=== PATIENT | male | born 1955 | race Caucasian/White ===

== ENCOUNTER 2021-04-05 14:04 | Inpatient (IN) ==
[2021-04-05 14:45] LABS: Basophils # (auto) 0.03 K/uL (0-0.2); Basophils % (auto) 0.2 %; Eosinophils # (auto) 0.23 K/uL (0-0.5); Eosinophils % (auto) 1.6 %; Hematocrit (blood only) 48.1 % (42-52); Hemoglobin 16.7 g/dL (14.0-18.0); Immature Granulocytes # (auto) 0.08 K/uL (0.00-0.02); Immature Granulocytes % (auto) 0.6 %; Lymphocytes # (auto) 3.87 K/uL (1.2-3.4); Lymphocytes % (auto) 27.3 %; Mean Corpuscular Hemoglobin 27.3 pg (25-34); Mean Corpuscular Hgb Conc 34.7 g/dL (32-36); Mean Corpuscular Volume 78.6 fL (80-100); Mean Platelet Volume 9.6 fL (7.4-10.4); Monocytes % (auto) 10.6 %; Neutrophils # (auto) 8.49 K/uL (1.4-6.5); Neutrophils % (auto) 59.7 %; Platelet Count 278 K/uL (130-400); RDW Coefficient of Variation 14.3 % (11.5-14.5); RDW Standard Deviation 40.7 fL (36.4-46.3); Red Blood Count 6.12 M/uL (4.7-6.1)
[2021-04-05] MEDS ORDERED: SODIUM CHLORIDE 0.9% 1000ML 1,000 ML IV SCH (14:45)
--- NOTE | 2021-04-05 14:54 | Emergency Department Note ---
History of Present Illness General Chief complaint: Vertigo Stated complaint: DIZZY Source: patient Mode of arrival: ambulatory Limitations: no limitations History of Present Illness Provider complaint: dizziness, palpitations Onset (ago): hour(s) This is a 65-year-old male who presents due to abrupt onset of dizziness, sweating, and palpitations. Patient states he was at home seated, resting when symptoms began. States he has had a prior similar episode last year of unknown etiology. Upon arrival here nursing staff states his heart rate was in the 200s and he was immediately placed in a resuscitation room. At the time of my arrival, patient's heart rate had begun to resolve on its own, was still tachycardic although not as fast. Staff had begun placing an IV. Heart rate was in the 140s, but quickly came down even further to the 1 teens. Patient denies any further dizziness at this time, states he does still feel sweaty. States when symptoms began he did feel a sense of racing, does not feel any racing or other palpitations at this time. Denies any shortness of breath. Patient denies any recent change in any medications. He is getting ready to have back surgery by Dr. Tobar the beginning of April. Patient does take medication for diabetes and high cholesterol. Patient is not anticoagulated. Patient states he has been working from home during the pandemic and because of the pain associated with his back issues. He states when this happened last year he underwent labs and imaging, and echo of his heart as well as a wearable heart monitor for several days and did follow-up with cardiology, Dr. Coello. Patient did have coronavirus last year. Pt initially tachycardic and hypotensive on arrival. Pt seen during a time of high acuity and national emergency pandemic while wearing PPE. Home Medications Medication Instructions Recorded Confirmed Type multivitamin 1 tab PO QAM 01/10/20 04/05/21 History acetaminophen 1,000 mg PO Q8H PRN 03/25/21 04/05/21 History albuterol sulfate 2 puff INHALATION Q6H PRN 03/25/21 04/05/21 History atorvastatin 20 mg PO HS 03/25/21 04/05/21 History cyclobenzaprine 10 mg PO BID PRN 03/25/21 04/05/21 History fluticasone propionate 2 spray INTRANASAL DAILY PRN 03/25/21 04/05/21 History metformin 1,000 mg PO QPM 03/25/21 04/05/21 History oxycodone 5 mg PO TID PRN 03/25/21 04/05/21 History apixaban [Eliquis] 5 mg PO BID #74 tab 04/07/21 Rx Allergies Allergy/AdvReac Type Severity Reaction Status Date / Time No Known Allergies Allergy Verified 03/25/21 10:10 Past Med/Surg History Medical History (Updated 04/08/21 @ 00:05 by Ricky Alvarez) Asthma Stable, follows [facility]) pulmonary annually Cancer BCC (facial/back removal) Diverticular disease Diverticulitis s/p bowel resection (2010) History of COVID-19 Dx 01/10/20 (Curetis) > symptoms at time of cough, dyspnea, fever, loss of smell > resolved History of palpitations Evaluated by cardiology 06/2020 for palpitations/rapid heart rate > no concerning findings on followup echo/holter per cardio, advised to f/u PRN Hyperlipidemia Pulmonary embolism Tachycardia Surgical History History of bowel resection Diverticulitis s/p bowel resection (2010) History of colonoscopy x3 History of herniorrhaphy x2 (at , 1995) History of tooth extraction WTE Family History (Updated 04/05/21 @ 18:07 by Kendra Simeon PA-C) Father Prostate cancer Denies family history of Pulmonary embolism Social History Smoking Status: Never smoker Second Hand Exposure: Yes (FATHER SMOKED); Hx Alcohol Use: Yes Alcohol type: beer, wine and hard liquor Hx Substance Use: No Preferred Language: Cambodian Communication Ability: Effective Research Physiologist Required: No Beliefs That Will Affect Care: None Current Living Situation: Spouse current occupational status: employed current occupation: [employer] Feels Safe at Home: Yes Assistive Devices: None Review of Systems See HPI for pertinent positives & negatives. and A total of 10 systems reviewed and were otherwise negative Physical Exam Vital Signs Vital Signs - 24 hr 04/05/21 14:25 04/05/21 14:30 04/05/21 14:34 Temperature 36.5 C Temperature Source Temporal Artery Scan Pulse Rate 205 H 108 H 107 H Pulse Rate from SpO2 Sensor 108 H 107 H Pulse Rhythm Regular Pulse Strength Normal Respiratory Rate 20 29 H 25 H Respiratory Effort / Characteristics Non-Labored Spontaneous Respiratory Depth Normal Respiratory Pattern Regular Blood Pressure 57/49 L 137/99 Blood Pressure Mean 51 111 Blood Pressure Position Sitting Pulse Oximetry 97 97 97 Oxygen Delivery Method Room Air Sepsis Recent Fever Within 48 Hours No Sepsis New/Unexplained Change in Mental Status N/A Sepsis Action Taken by Nursing No Action Required 04/05/21 14:40 04/05/21 14:50 04/05/21 15:00 Temperature Temperature Source Pulse Rate 102 H 104 H 102 H Pulse Rate from SpO2 Sensor 103 H 102 H 102 H Pulse Rhythm Pulse Strength Respiratory Rate 16 22 Respiratory Effort / Characteristics Respiratory Depth Respiratory Pattern Blood Pressure 110/81 101/82 107/74 Blood Pressure Mean 90 88 85 Blood Pressure Position Pulse Oximetry 97 96 96 Oxygen Delivery Method Sepsis Recent Fever Within 48 Hours Sepsis New/Unexplained Change in Mental Status Sepsis Action Taken by Nursing 04/05/21 15:10 04/05/21 16:11 04/05/21 16:30 Temperature Temperature Source Pulse Rate 104 H 88 Pulse Rate from SpO2 Sensor 104 H 90 89 Pulse Rhythm Pulse Strength Respiratory Rate 19 20 Respiratory Effort / Characteristics Respiratory Depth Respiratory Pattern Blood Pressure 110/84 Blood Pressure Mean 92 Blood Pressure Position Pulse Oximetry 95 98 94 Oxygen Delivery Method Sepsis Recent Fever Within 48 Hours Sepsis New/Unexplained Change in Mental Status Sepsis Action Taken by Nursing 04/05/21 16:44 Temperature Temperature Source Pulse Rate 86 Pulse Rate from SpO2 Sensor 86 Pulse Rhythm Pulse Strength Respiratory Rate 20 Respiratory Effort / Characteristics Respiratory Depth Respiratory Pattern Blood Pressure 116/77 Blood Pressure Mean 90 Blood Pressure Position Pulse Oximetry 97 Oxygen Delivery Method Sepsis Recent Fever Within 48 Hours Sepsis New/Unexplained Change in Mental Status Sepsis Action Taken by Nursing GENERAL: alert, well appearing, well nourished, no distress, non-toxic EYE EXAM: normal conjunctiva, PERRL and EOM's grossly intact OROPHARYNX: no exudate, no erythema, lips, buccal mucosa, and tongue normal and mucous membranes are moist NECK: supple, no nuchal rigidity, no adenopathy, non-tender LUNGS: Clear to auscultation. Normal chest wall mechanics, no w/r/r HEART: no murmurs, S1 normal and S2 normal ABDOMEN: abdomen soft, non-tender, normo-active bowel sounds, no masses, no r ebound or guarding. BACK: Back is symmetrical on inspection and there is no deformity, no midline t enderness, no CVA tenderness. SKIN: no rashes and no bruising UPPER EXTREMITIES: upper extremities are grossly normal. FROM, nml pulses b/l. LOWER EXTREMITIES: No pitting edema. FROM, nml pulses b/l. NEURO EXAM: Normal sensorium, cranial nerves II-XII grossly intact, normal speech, no gross weakness of arms, no gross weakness of legs. Gross sensation intact. Course Course 1542: Updated patient on results and plan for additional CT imaging. 1640: Updated patient on CT results and need for additional inpatient monitoring and treatment. Administered Medications Discontinued Medications Acetaminophen (Acetaminophen 325 Mg Tab) 650 mg PO Q4H PRN PRN Reason: Pain or Fever Stop: 05/05/21 20:45 Last Admin: 04/07/21 08:07 Dose: 650 mg Documented by: [id number] Admin: 04/06/21 17:32 Dose: 650 mg Documented by: [id number] Apixaban (Apixaban 5 Mg Tablet) 10 mg PO BID JOSE MANUEL Stop: 04/13/21 21:01 Last Admin: 04/07/21 13:20 Dose: 10 mg Documented by: [id number] Atorvastatin Calcium (Atorvastatin 20 Mg Tab) 20 mg PO HS JOSE MANUEL Stop: 05/05/21 20:59 Last Admin: 04/06/21 20:03 Dose: 20 mg Documented by: [id number] Admin: 04/05/21 21:38 Dose: 20 mg Documented by: [id number] Heparin Sodium (Porcine) (Heparin Sod (Porcine) 1000 Unit/Ml) 1 units IV NOW ONE Stop: 04/05/21 17:14 Last Admin: 04/05/21 17:29 Dose: 7,000 units Documented by: [id number] Cosigned by: [id number] Heparin Sodium/Dextrose (Heparin Iv Adult Wt-Based Standard With Bolus Protocol) 1 ea IV NOW STA; Protocol Stop: 04/05/21 16:59 Last Admin: 04/05/21 17:30 Dose: 1 ea Documented by: [id number] Sodium Chloride (Nss 1000ml) 1,000 mls @ 125 mls/hr IV .Q8H JOSE MANUEL Stop: 05/05/21 14:44 Last Infusion: 04/05/21 17:10 Dose: 0 mls/hr Documented by: [id number] Admin: 04/05/21 14:45 Dose: 125 mls/hr Documented by: [id number] Magnesium Sulfate/Dextrose (Magnesium Sulfate / D5w) 1 gm in 100 mls @ 100 mls/hr IV NOW STA Stop: 04/05/21 16:19 Last Infusion: 04/05/21 17:31 Dose: 0 mls/hr Documented by: [id number] Admin: 04/05/21 17:00 Dose: 100 mls/hr Documented by: [id number] Heparin Sodium/Dextrose (Heparin Sodium/Dextrose) 25,000 units in 500 mls @ 28 mls/hr IV .[id number] JOSE MANUEL; Protocol Stop: 05/05/21 17:12 Last Titration: 04/07/21 13:21 Dose: 0 units/hr, 0 mls/hr Documented by: [id number] Cosigned by: [id number] Admin: 04/07/21 03:35 Dose: 1,400 units/hr, 28 mls/hr Documented by: [id number] Cosigned by: [id number] Titration: 04/07/21 03:35 Dose: 1,400 units/hr, 28 mls/hr Documented by: [id number] Cosigned by: [id number] Titration: 04/06/21 19:01 Dose: 1,400 units/hr, 28 mls/hr Documented by: [id number] Cosigned by: [id number] Admin: 04/06/21 11:38 Dose: 1,400 units/hr, 28 mls/hr Documented by: [id number] Cosigned by: [id number] Titration: 04/06/21 10:52 Dose: 1,400 units/hr, 28 mls/hr Documented by: [id number] Cosigned by: [id number] Titration: 04/06/21 07:06 Dose: 1,400 units/hr, 28 mls/hr Documented by: [id number] Cosigned by: [id number] Titration: 04/06/21 00:16 Dose: 1,400 units/hr, 28 mls/hr Documented by: [id number] Cosigned by: [id number] Admin: 04/05/21 17:29 Dose: 1,500 units/hr, 30 mls/hr Documented by: [id number] Cosigned by: [id number] Insulin Aspart (Insulin Aspart 100 Units/Ml 3 Ml Pen) 0 units SC ACHS JOSE MANUEL Stop: 05/05/21 20:59 Last Admin: 04/07/21 12:03 Dose: 2 units Documented by: [id number] Cosigned by: [id number] Admin: 04/07/21 08:09 Dose: 3 units Documented by: [id number] Cosigned by: [id number] Admin: 04/06/21 20:06 Dose: Not Given Documented by: [id number] Admin: 04/06/21 16:53 Dose: 3 units Documented by: [id number] Cosigned by: [id number] Admin: 04/06/21 12:03 Dose: 3 units Documented by: [id number] Cosigned by: [id number] Admin: 04/06/21 08:10 Dose: 2 units Documented by: [id number] Cosigned by: [id number] Admin: 04/05/21 21:41 Dose: 1 units Documented by: [id number] Cosigned by: [id number] Insulin Glargine (Insulin Glargine Solostar 100 Units/Ml 3 Ml Pen) 0 - 10 units SC BID [facility] Stop: 05/05/21 20:59 Last Admin: 04/07/21 08:10 Dose: 5 units Documented by: [id number] Cosigned by: [id number] Admin: 04/06/21 20:07 Dose: Not Given Documented by: [id number] Admin: 04/06/21 08:10 Dose: 5 units Documented by: [id number] Cosigned by: [id number] Admin: 04/05/21 21:40 Dose: 5 units Documented by: [id number] Cosigned by: [id number] Ioversol (Optiray 320 125ml) 119 ml IV ONCE ONE Stop: 04/05/21 15:51 Last Admin: 04/05/21 15:50 Dose: 1 ml Documented by: [id number] Miscellaneous (Stop Order - Heparin Drip) 1 ea N/A ONE ONE Stop: 04/07/21 12:46 Last Admin: 04/07/21 13:20 Dose: 1 ea Documented by: [id number] Multivitamins (Multivitamin Tab) 1 tab PO QAM [facility] Stop: 05/06/21 08:59 Last Admin: 04/07/21 08:08 Dose: 1 tab Documented by: [id number] Admin: 04/06/21 07:16 Dose: 1 tab Documented by: [id number] Critical Care Time Critical Care Time: Yes Total Critical Care Time: 42 Critical care of 42 min performed to assess and manage high likelihood of life- threatening tachycardia, involving labs and imaging performed with assessment to evaluate tachycardia diagnosis with frequent reassessment. This time includes bedside time, treatment discussions with patient/family/consultants, documen tation time and excludes procedure time. Medical Decision Making Differential Diagnosis Differential diagnosis includes etiologies such as premature contractions, electrolyte abnormality, cardiac dysrhythmia, thyroid dysfunction, pulmonary embolism, infection, gastrointestinal, as well as others were entertained. Medical Records Attestation: I reviewed the patient's medical records. Home Medications Current Medication List: was personally reviewed by me Laboratory Data Attestation: I reviewed the patient's lab results. Result diagrams: 04/06/21 06:35 04/06/21 06:35 Lab Results 04/05/21 04/05/21 04/05/21 Range/Units 14:35 14:35 14:35 WBC 14.20 H (4.8-10.8) K/uL RBC 6.12 H (4.7-6.1) M/uL Hgb 16.7 (14.0-18.0) g/dL Hct 48.1 (42-52) % MCV 78.6 L (80-100) fL MCH 27.3 (25-34) pg MCHC 34.7 (32-36) g/dL RDW Std Deviation 40.7 (36.4-46.3) fL RDW Coeff of Rosa 14.3 (11.5-14.5) % Plt Count 278 (130-400) K/uL MPV 9.6 (7.4-10.4) fL Immature Gran % (Auto) 0.6 % Neut % (Auto) 59.7 % Lymph % (Auto) 27.3 % Cassia % (Auto) 10.6 % Eos % (Auto) 1.6 % Baso % (Auto) 0.2 % Neut # (Auto) 8.49 H (1.4-6.5) K/uL Lymph # (Auto) 3.87 H (1.2-3.4) K/uL Cassia # (Auto) 1.50 H (0.11-0.59) K/uL Eos # (Auto) 0.23 (0-0.5) K/uL Baso # (Auto) 0.03 (0-0.2) K/uL Immature Gran # (Auto) 0.08 H (0.00-0.02) K/uL PT (9.0-12.0) Seconds INR (0.9-1.1) D-Dimer 1170 H* (0-500) ug/L FEU Sodium 135 L (136-145) mmol/L Potassium 4.0 (3.5-5.1) mmol/L Chloride 99 (98-107) mmol/L Carbon Dioxide 27 (21-32) mmol/L Anion Gap 9.0 (3-11) BUN 18 (7-18) mg/dl Creatinine 0.84 (0.6-1.4) mg/dl Est Cr Clr Drug Dosing 105.0 ml/min Est GFR ( Amer) 107.2 ml/min Est GFR (Non-Af Amer) 92.5 ml/min BUN/Creatinine Ratio 21.7 H (10-20) Glucose 127 H (70-99) mg/dl Calcium 9.6 (8.5-10.1) mg/dl Magnesium 1.7 L (1.8-2.4) mg/dl Total Bilirubin 0.8 (0.2-1) mg/dl AST 41 H (15-37) U/L ALT 65 (12-78) U/L Alkaline Phosphatase 70 (45-117) U/L Troponin I < 0.015 (0-0.045) ng/ml NT-Pro-B Natriuret Pep 58 (0-900) pg/ml Total Protein 7.8 (6.4-8.2) gm/dl Albumin 4.0 (3.4-5.0) gm/dl Globulin 3.8 (2.5-4.0) gm/dl Albumin/Globulin Ratio 1.1 (0.9-2) TSH 2.980 (0.300-4.500) uIu/ml Lyme Disease IgG Ab (Negative) Lyme Disease IgM Ab (Negative) 04/05/21 04/05/21 Range/Units 14:35 14:35 WBC (4.8-10.8) K/uL RBC (4.7-6.1) M/uL Hgb (14.0-18.0) g/dL Hct (42-52) % MCV (80-100) fL MCH (25-34) pg MCHC (32-36) g/dL RDW Std Deviation (36.4-46.3) fL RDW Coeff of Rosa (11.5-14.5) % Plt Count (130-400) K/uL MPV (7.4-10.4) fL Immature Gran % (Auto) % Neut % (Auto) % Lymph % (Auto) % Cassia % (Auto) % Eos % (Auto) % Baso % (Auto) % Neut # (Auto) (1.4-6.5) K/uL Lymph # (Auto) (1.2-3.4) K/uL Cassia # (Auto) (0.11-0.59) K/uL Eos # (Auto) (0-0.5) K/uL Baso # (Auto) (0-0.2) K/uL Immature Gran # (Auto) (0.00-0.02) K/uL PT 10.6 (9.0-12.0) Seconds INR 1.0 (0.9-1.1) D-Dimer (0-500) ug/L FEU Sodium (136-145) mmol/L Potassium (3.5-5.1) mmol/L Chloride (98-107) mmol/L Carbon Dioxide (21-32) mmol/L Anion Gap (3-11) BUN (7-18) mg/dl Creatinine (0.6-1.4) mg/dl Est Cr Clr Drug Dosing ml/min Est GFR ( Amer) ml/min Est GFR (Non-Af Amer) ml/min BUN/Creatinine Ratio (10-20) Glucose (70-99) mg/dl Calcium (8.5-10.1) mg/dl Magnesium (1.8-2.4) mg/dl Total Bilirubin (0.2-1) mg/dl AST (15-37) U/L ALT (12-78) U/L Alkaline Phosphatase (45-117) U/L Troponin I (0-0.045) ng/ml NT-Pro-B Natriuret Pep (0-900) pg/ml Total Protein (6.4-8.2) gm/dl Albumin (3.4-5.0) gm/dl Globulin (2.5-4.0) gm/dl Albumin/Globulin Ratio (0.9-2) TSH (0.300-4.500) uIu/ml Lyme Disease IgG Ab Negative (Negative) Lyme Disease IgM Ab Negative (Negative) Imaging Data Radiologist's Impression: Chest X-Ray 04/05/21 14:39 XR chest 1V portable CLINICAL HISTORY: tachycardia COMPARISON STUDY: May 06, 2020 FINDINGS: No pneumothorax. No pleural effusion. No large infiltrates or consolidative lesions are seen. Minimal atelectasis/scarring is seen at the left base. Cardiomediastinal silhouette is within normal limits in size. No significant pulmonary vascular congestion.. Osseous structures: unremarkable IMPRESSION: 1. Minimal atelectasis/scarring at the left base. ACT 112: Negative or not required by law. The above report was generated using voice recognition software. It may contain grammatical, syntax or spelling errors. Electronically signed by: Indira Barker DO 04/05/2021 3:00 PM Chest CTA 04/05/21 15:40 CT ANGIOGRAM OF THE CHEST CLINICAL HISTORY: PE COMPARISON STUDY: May 06, 2020 TECHNIQUE: Following the IV administration of 119 mL of Optiray, CT angiogram of the thorax was performed from the thoracic inlet to the lung bases utilizing the pulmonary embolus protocol. Images are reviewed in the axial, sagittal, and coronal planes. IV contrast was administered without complication. MIP imaging was performed. A dose lowering technique was utilized adhering to the evaristo kassidyples of [place]. CT DOSE: 754.66 mGy.cm FINDINGS: There is adequate characterization of the main pulmonary artery. Multiple filling defects are seen within branches of the pulmonary artery supply ing upper and lower lobes of bilateral lungs which is mostly nonocclusive however there is complete occlusion small branch of pulmonary artery supplying left upper lobe (4/176) Pulmonary artery is normal in caliber. No right heart strain seen. Cardiac silhouette is normal in size. No evidence of pericardial effusion. No significant coronary calcification seen however evaluation is limited due to motion artifact. Visualized portion of thyroid gland shows no evidence of focal lesions. Esophagus is normal. No pathologically enlarged axillary mediastinal or hilar lymph nodes were visualized. Tracheobronchial tree is patent. Focal peripheral triangular opacity is seen within left upper lobe and might represent pulmonary infarct. Minimal atelectasis is seen in bilateral bases. Limited evaluation of upper abdominal viscera shows no evidence of acute abnormalities. Osseous structures: Mild degenerative changes of the spine. IMPRESSION: 1. Multiple nonocclusive thrombi within branches of pulmonary artery. Acute occlusive thrombus within left upper lobe pulmonary artery branch with possible area of pulmonary infarction. No evidence of right heart strain or pulmonary artery dilatation seen. Results were reported to emergency Department at the t beata of this dictation. 2. No infiltrates or consolidative lesions. ACT 112: Positive. There are findings on this exam that require communication between the performing entity and the patient following Patient Test Result Information Act ([place] Act 112) guidelines. The above report was generated using voice recognition software. It may contain grammatical, syntax or spelling errors. Electronically signed by: Indira Barker DO 04/05/2021 4:29 PM ECG Data Attestation: I personally reviewed and interpreted this ECG as follows: Indication: + palpitations Rate (beats per minute): 108 Rhythm: + sinus tachycardia ECG Intervals/blocks: + Normal QRS and + Normal QT ECG [place]: + Normal ECG ST segments: + Normal ST segments MDM Narrative PESI score elevated risk This is a 65-year-old male presents emergency department for evaluation due to concern for dizziness, diaphoresis, and rapid heart rate. Initially in triage patient found to have a heart rate in the 200s and was hypotensive. Patient was already improving by the time he was placed in B1 and by the time I got to bedside his heart rate continued to improve when he was down to the 1 teens. No dysrhythmia noted on telemetry, however on review of EMR as patient has had a similar episode approximately a year ago patient did previously have an episode of SVT and initially suspected that is what may have caused this. Labs are drawn and sent, patient continued to be monitored on telemetry, chest x-ray performed which is reassuring. No recent illness, change in activity, or new medications. Due to patient's age and tachycardia D-dimer had been added which was elevated. Patient sent for CT imaging which revealed multiple bilateral PEs. Patient with no prior history although has recently been more sedentary due to ongoing back pain and upcoming back surgery for this. Likely this increased sedentary lifestyle put him at risk. Patient had no recent leg swelling or calf tenderness to suggest lower extremity DVT. Patient and updated on all results and plan. Patient started on heparin for anticoagulation in case discussed with hospitalist for additional management. Due to patient's age and history, patient is high risk. Patient had no recurrent episodes of significant tachycardia while in the emergency room and remained hemodynamically stable. An order was placed for continuous cardiac monitoring. The monitor shows a rate of _109_ with _sinus tachycardia_ rhythm. Impression & Plan Tachycardia, Pulmonary embolism Discharge Plan Visit Data Chief Complaint: Vertigo Stated Complaint: DIZZY ED Provider: Linda Walters Discharge Problem: Tachycardia, Pulmonary embolism Patient Disposition: Admitted As Inpatient Discharge Instructions Interventions: ED Discharge Assessment Last Done: 04/05/21 20:31
--- NOTE | 2021-04-05 15:01 | XRay Report ---
XR chest 1V portable CLINICAL HISTORY: tachycardia COMPARISON STUDY: May 06, 2020 FINDINGS: No pneumothorax. No pleural effusion. No large infiltrates or consolidative lesions are seen. Minimal atelectasis/scarring is seen at the l eft base. Cardiomediastinal silhouette is within normal limits in size. No significant pulmonary vascular congestion.. Osseous structures: unremarkable IMPRESSION: 1. Minimal atelectasis/scarring at the left base. ACT 112: Negative or not required by law. The above report was generated using voice recognition software. It may contain grammatical, syntax o r spelling errors. Electronically signed by: Indira Barker DO 04/05/2021 3:00 PM
[2021-04-05 15:16] LABS: Alanine Aminotransferase 65 U/L (12-78); Aspartate Aminotransferase 41 U/L (15-37); BUN Creatinine Ratio 21.7 (10-20); Blood Urea Nitrogen 18 mg/dl (7-18); Calcium 9.6 mg/dl (8.5-10.1); Carbon Dioxide 27 mmol/L (21-32); Chloride 99 mmol/L (98-107); Est GFR (African American) 107.2 ml/min; Est GFR (Non-African American) 92.5 ml/min; Glucose 127 mg/dl (70-99); Magnesium 1.7 mg/dl (1.8-2.4); Sodium 135 mmol/L (136-145)
[2021-04-05] MEDS ORDERED: MAGNESIUM SULFATE / D5W 1 GM/100 ML BAG IV STA (15:20)
[2021-04-05 15:27] LABS: Albumin Globulin Ratio 1.1 (0.9-2); Alkaline Phosphatase 70 U/L (45-117); Bilirubin,Total 0.8 mg/dl (0.2-1); Globulin 3.8 gm/dl (2.5-4.0); NT Pro B Type Natriuretic Pept 58 pg/ml (0-900); Total Protein 7.8 gm/dl (6.4-8.2); Troponin I < 0.015 ng/ml (0-0.045)
[2021-04-05 15:35] LABS: D Dimer 1170 ug/L FEU (0-500)
[2021-04-05] MEDS ORDERED: OPTIRAY 320 125ml IV ONE (15:50)
[2021-04-05 15:52] LABS: Lyme Ab IgG w/WB Rflx Negative (Negative)
[2021-04-05 15:53] LABS: Lyme Ab IgM w/WB Rflx Negative (Negative)
--- NOTE | 2021-04-05 16:31 | CT Scan Report ---
CT ANGIOGRAM OF THE CHEST CLINICAL HISTORY: PE COMPARISON STUDY: May 06, 2020 TECHNIQUE: Following the IV administration of 119 mL of Optiray, CT angiogram of the thorax was perfo rmed from the thoracic inlet to the lung bases utilizing the pulmonary embolus protocol. Images are r eviewed in the axial, sagittal, and coronal planes. IV contrast was administered without complication . MIP imaging was performed. A dose lowering technique was utilized adhering to the principles of [place] [employer]. CT DOSE: 754.66 mGy.cm FINDINGS: There is adequate characterization of the main pulmonary artery. Multiple filling defects are seen within branches of the pulmonary artery supplying upper and lower l obes of bilateral lungs which is mostly nonocclusive however there is complete occlusion small branch of pulmonary artery supplying left upper lobe (4/176) Pulmonary artery is normal in caliber. No right heart strain seen. Cardiac silhouette is normal in size. No evidence of pericardial effusion. No significant coronary ca lcification seen however evaluation is limited due to motion artifact. Visualized portion of thyroid gland shows no evidence of focal lesions. Esophagus is normal. No pathologically enlarged axillary mediastinal or hilar lymph nodes were visualized. Tracheobronchial tree is patent. Focal peripheral triangular opacity is seen within left upper lobe a nd might represent pulmonary infarct. Minimal atelectasis is seen in bilateral bases. Limited evaluation of upper abdominal viscera shows no evidence of acute abnormalities. Osseous structures: Mild degenerative changes of the spine. IMPRESSION: 1. Multiple nonocclusive thrombi within branches of pulmonary artery. Acute occlusive thrombus withi n left upper lobe pulmonary artery branch with possible area of pulmonary infarction. No evidence of right heart strain or pulmonary artery dilatation seen. Results were reported to emergency Department at the time of this dictation. 2. No infiltrates or consolidative lesions. ACT 112: Positive. There are findings on this exam that require communication between the performing entity and the patient following Patient Test Result Information Act [place] Act 112) guidelines. The above report was generated using voice recognition software. It may contain grammatical, syntax o r spelling errors. Electronically signed by: Indira Barker DO 04/05/2021 4:29 PM
[2021-04-05] MEDS ORDERED: Heparin IV Adult Wt-Based Standard WITH Bolus Protocol IV STA (16:58)
[2021-04-05] MEDS ORDERED: HEPARIN SOD (PORCINE) 1000 UNIT/ML IV ONE ×2 (17:13→18:00)
[2021-04-05 17:17] LABS: Prothrombin Time 10.6 Seconds (9.0-12.0)
[2021-04-05] MEDS: HEPARIN SODIUM/DEXTROSE 25,000 UNITS/500 ML BAG IV SCH (17:29)
--- NOTE | 2021-04-05 18:01 | History & Physical Report ---
Date of Service April 05, 2021 Assessment & Plan (1) Pulmonary embolism: (2) Tachycardia: This is a 65-year-old male who has significant past medical history of T2DM, HLD, history of Covid, asthma, DWAYNE on CPAP who presents to ED secondary to heart palpitations, tachycardia and lightheadedness prior to arrival. Symptoms started abruptly at approximately 12:15 PM. Chest CTA: Multiple nonocclusive thrombi within branches of pulmonary artery. Acute occlusive thrombus within left upper lobe pulmonary artery branch with possible area of pulmonary infarction. No evidence of right heart strain or pulmonary artery dilatation seen. No recent travel, hx of PE, FH of clotting d/o. He has been more sedentary 2/2 to low back/leg pain due to disc herniations. Hx of covid- but in 12/2019. Admit to PCU continue IV heparin - discussed with patient about warfarin/DOACS in future, was interested in DOACS if possible obtain echocardiogram eval heart function b/l venous doppler Dr. Fitzpatrick to discuss with Pulm tomorrow regarding possible pulmonary infarct will need to notify Dr. Tobar regarding findings and postpone upcoming surgery Palpitations/tachyarrhythmia Patient currently in sinus tach likely in setting of pulmonary embolism Prior to arrival to ED patient complained of significant heart palpitations and pulse ox recording heart rate of greater than 200 In triage it was also reported of tachycardia with heart rates greater than 200; however by the time patient got on monitor symptoms improved and were in the 120s-140s No arrhythmia was captured Continue to monitor on telemetry for any further events Leukocytosis Likely in setting of PE, reactive No signs or symptoms of infection Monitor (3) Diabetes mellitus, type 2: A1c 8.0 03/05/2021 Hold Metformin Lantus/NovoLog per protocol (4) Chronic back pain: Patient is suffering from a disc herniation and is scheduled to have a procedure with Dr. Tobar on April 18 Given newly diagnosed pulmonary embolism lower back procedure will need to be postponed Continue APAP, Flexeril, oxycodone He was taking ibuprofen at home, will discontinue this secondary to anticoagulation (5) DWAYNE (obstructive sleep apnea): CPAP at HS (6) DVT prophylaxis: IV Heparin Dispo: PCU PCP: Stefanie FULL CODE Patient was seen and examined in collaboration with Dr. Fitzpatrick, please see addendum History of Present Illness Chief Complaint: Heart palpitations, tachycardia and lightheadedness prior to arrival. Primary Care Provider: Padmini Watts, DO This is a 65-year-old male who has significant past medical history of T2DM, HLD, history of Covid, asthma, DWAYNE on CPAP who presents to ED secondary to heart palpitations, tachycardia and lightheadedness prior to arrival. Symptoms started abruptly at approximately 12:15 PM. He could feel his heart racing, palpitations, diaphoretic and lightheaded. had a pulse ox and checked his pulse and it was reading greater than 200. He tried to get up to walk to the sink but when he tried to walk he became lightheaded and opted to sit back down. His symptoms continued until he got into triage and slowly started to resolve. In triage Per ED provider heart rate was registering over 200. However, by the time patient was hooked up to monitor his heart rate was in the 140s and then into the 110s. Patient had a similar event back in May 2020 when he had similar symptoms and tachycardia. When he presented to ED his symptoms had resolved. He had followed up with [facility] cardiology Dr. Coello and underwent heart rhythm monitoring. No arrhythmias were captured and echocardiogram was unremarkable. He was cleared from a cardiology standpoint. Prior to today at 1215 he had been otherwise feeling well. He did elicit that for the past 3 to 4 days he had left chest wall pain that was worse with inspiration and occasionally made him feel short of breath. The pain came on when he woke up one morning and gradually resolved. His left-sided chest pain is resolved and is not currently present. He denies any recent fever, chills, sweats, syncope, shortness of breath, cough, hemoptysis, URI symptoms, nausea, vomiting, abdominal pain, change in bowel or urinary habits. His appetite has otherwise been well. He admits to approximately a 5 pound weight loss since being started on Metformin. He denies any prior past history of blood clots or family history of blood clots. He denies any recent travel. He admits to being more sedentary in the past year secondary to working from home as well as low back and leg pain. Patient has been suffering from herniated lumbar disks and is to undergo surgery with Dr. Tobar on April 18. He had his first preop appointment yesterday. In ED patient remained hemodynamically stable. He is saturating well on room air. Unfortunately chest CTA revealed multiple nonocclusive thrombi within branches of the pulmonary artery. An acute occlusive thrombus within the left upper lobe pulmonary artery branch with possible area of pulmonary infarction. No evidence of right heart strain. He was appropriately started on IV heparin with bolus and his magnesium was repleted. Allergies Allergy/AdvReac Type Severity Reaction Status Date / Time No Known Allergies Allergy Verified 04/16/21 18:50 Home Medications Medication Instructions Recorded Confirmed Type multivitamin 1 tab PO QAM 01/10/20 04/16/21 History acetaminophen 1,000 mg PO Q8H PRN 03/25/21 04/16/21 History albuterol sulfate 2 puff INHALATION Q6H PRN 03/25/21 04/16/21 History atorvastatin 20 mg PO HS 03/25/21 04/16/21 History cyclobenzaprine 10 mg PO BID PRN 03/25/21 04/16/21 History fluticasone propionate 2 spray INTRANASAL DAILY PRN 03/25/21 04/16/21 History metformin 1,000 mg PO QPM 03/25/21 04/16/21 History oxycodone 5 mg PO TID PRN 03/25/21 04/16/21 History apixaban [Eliquis] 5 mg PO BID #74 tab 04/07/21 04/16/21 Rx Past Med/Surg History Medical History (Updated 04/16/21 @ 20:35 by Sreekanth Jade MD) Asthma Stable, follows with [facility]) pulmonary annually Cancer BCC (facial/back removal) Diverticular disease Diverticulitis s/p bowel resection (2010) History of COVID-19 Dx 01/10/20 (HistoryFile) > symptoms at time of cough, dyspnea, fever, loss of smell > resolved History of palpitations Evaluated by cardiology 06/2020 for palpitations/rapid heart rate > no concerning findings on followup echo/holter per cardio, advised to f/u PRN Hyperlipidemia Pulmonary embolism Tachycardia Surgical History History of bowel resection Diverticulitis s/p bowel resection (2010) History of colonoscopy x3 History of herniorrhaphy x2 (at , 1995) History of tooth extraction WTE Family History (Updated 04/05/21 @ 18:07 by Kendra Simeon PA-C) Father Prostate cancer Denies family history of Pulmonary embolism Social History Smoking Status: Never smoker Second Hand Exposure: Yes (FATHER SMOKED); Hx Alcohol Use: Yes Alcohol type: beer, wine and hard liquor Hx Substance Use: No Preferred Language: Czech Communication Ability: Effective Brazer Electronic Required: No Beliefs That Will Affect Care: None Current Living Situation: Spouse current occupational status: employed current occupation: [employer] Feels Safe at Home: Yes Assistive Devices: None Review of Systems Review of Systems: All systems reviewed & are unremarkable except as noted in HPI & below Physical Exam Physical Exam: Constitutional: WD/WN, vitals as above, NAD, sitting up in bed, pleasant, conversing easily Head: Normocephalic, Atraumatic Eyes: PERRL, conjunctivae normal, anicteric sclerae ENMT: external ear and nose normal, oropharynx normal Neck: trachea midline, no thyromegaly normal visual inspection Respiratory: normal respiratory effort, lungs clear to auscultation, no wheeze, rales, rhonchi. Normal insp/exp effort, no accessory muscle use Cardiovascular: RRR, no murmur, no edema Vessels: no JVD or carotid bruit Chest: normal inspection of chest Abdomen: normal bowel sounds, soft, nontender, no hepatosplenomegaly Musculoskeletal: no cyanosis or clubbing, extremities motor strength 5/5 Skin: no rashes, warm and dry normal turgor Neurologic: PERRL, EOMI, accommodation nl, no face palsy, no dysarthria CN's II-XI intact bilaterally and moves all extremities Psychiatric: A+Ox3, euthymic affect Lymphatic: no cervical or axillary lymphadenopathy : deferred Results & Data Results & Data ([facility]) Vital Signs (Past 12 Hours) Vital Signs Temp Pulse Resp BP Pulse Ox 04/05/21 16:44 86 20 116/77 97 04/05/21 16:30 88 20 94 04/05/21 16:11 98 04/05/21 15:10 104 H 19 110/84 95 04/05/21 15:00 102 H 22 107/74 96 04/05/21 14:50 104 H 16 101/82 96 04/05/21 14:40 102 H 110/81 97 04/05/21 14:34 107 H 25 H 97 04/05/21 14:30 108 H 29 H 137/99 97 04/05/21 14:25 36.5 C 205 H 20 57/49 L 97 Diagnostic Findings Chest X-Ray 04/05/21 14:39 XR chest 1V portable CLINICAL HISTORY: tachycardia COMPARISON STUDY: May 06, 2020 FINDINGS: No pneumothorax. No pleural effusion. No large infiltrates or consolidative lesions are seen. Minimal atelectasis/scarring is seen at the left base. Cardiomediastinal silhouette is within normal limits in size. No significant pulmonary vascular congestion.. Osseous structures: unremarkable IMPRESSION: 1. Minimal atelectasis/scarring at the left base. ACT 112: Negative or not required by law. The above report was generated using voice recognition software. It may contain grammatical, syntax or spelling errors. Electronically signed by: Indira Barker DO 04/05/2021 3:00 PM Chest CTA 04/05/21 15:40 CT ANGIOGRAM OF THE CHEST CLINICAL HISTORY: PE COMPARISON STUDY: May 06, 2020 TECHNIQUE: Following the IV administration of 119 mL of Optiray, CT angiogram of the thorax was performed from the thoracic inlet to the lung bases utilizing the pulmonary embolus protocol. Images are reviewed in the axial, sagittal, and coronal planes. IV contrast was administered without complication. MIP imaging was performed. A dose lowering technique was utilized adhering to the principles of ALARA. CT DOSE: 754.66 mGy.cm FINDINGS: There is adequate characterization of the main pulmonary artery. Multiple filling defects are seen within branches of the pulmonary artery supplying upper and lower lobes of bilateral lungs which is mostly nonocclusive however there is complete occlusion small branch of pulmonary artery supplying left upper lobe (4/176) Pulmonary artery is normal in caliber. No right heart strain seen. Cardiac silhouette is normal in size. No evidence of pericardial effusion. No significant coronary calcification seen however evaluation is limited due to motion artifact. Visualized portion of thyroid gland shows no evidence of focal lesions. Esophagus is normal. No pathologically enlarged axillary mediastinal or hilar lymph nodes were visualized. Tracheobronchial tree is patent. Focal peripheral triangular opacity is seen within left upper lobe and might represent pulmonary infarct. Minimal atelectasis is seen in bilateral bases. Limited evaluation of upper abdominal viscera shows no evidence of acute abnormalities. Osseous structures: Mild degenerative changes of the spine. IMPRESSION: 1. Multiple nonocclusive thrombi within branches of pulmonary artery. Acute occlusive thrombus within left upper lobe pulmonary artery branch with possible area of pulmonary infarction. No evidence of right heart strain or pulmonary artery dilatation seen. Results were reported to emergency Department at the time of this dictation. 2. No infiltrates or consolidative lesions. ACT 112: Positive. There are findings on this exam that require communication between the performing entity and the patient following Patient Test Result Information Act ([place] Act 112) guidelines. The above report was generated using voice recognition software. It may contain grammatical, syntax or spelling errors. Electronically signed by: Indira Barker DO 04/05/2021 4:29 PM Medications Administered Medication List Sodium Chloride (Nss 1000ml) 1,000 mls @ 125 mls/hr IV .Q8H [facility] Stop: 05/05/21 14:44 Last Infusion: 04/05/21 17:10 Dose: 0 mls/hr Documented by: [id number] Admin: 04/05/21 14:45 Dose: 125 mls/hr Documented by: [id number] Heparin Sodium/Dextrose (Heparin Sodium/Dextrose) 25,000 units in 500 mls @ 30 mls/hr IV .[id number] [facility]; Protocol Stop: 05/05/21 17:12 Last Admin: 04/05/21 17:29 Dose: 1,500 units/hr, 30 mls/hr Documented by: [id number] Cosigned by: [id number] Discontinued Medications Heparin Sodium (Porcine) (Heparin Sod (Porcine) 1000 Unit/Ml) 1 units IV NOW ONE Stop: 04/05/21 17:14 Last Admin: 04/05/21 17:29 Dose: 7,000 units Documented by: [id number] Cosigned by: [id number] Heparin Sodium/Dextrose (Heparin Iv Adult Wt-Based Standard With Bolus Protocol) 1 ea IV NOW STA; Protocol Stop: 04/05/21 16:59 Last Admin: 04/05/21 17:30 Dose: 1 ea Documented by: [id number] Magnesium Sulfate/Dextrose (Magnesium Sulfate / D5w) 1 gm in 100 mls @ 100 mls/hr IV NOW STA Stop: 04/05/21 16:19 Last Infusion: 04/05/21 17:31 Dose: 0 mls/hr Documented by: [id number] Admin: 04/05/21 17:00 Dose: 100 mls/hr Documented by: [id number] Ioversol (Optiray 320 125ml) 119 ml IV ONCE ONE Stop: 04/05/21 15:51 Last Admin: 04/05/21 15:50 Dose: 1 ml Documented by: [id number] ECG Rate (beats per minute): 108 Rhythm: sinus tachycardia COVID-19 Results Results COVID-19 Adm Lab Results: RBC 5.44 M/uL (4.7-6.1) 04/06/21 WBC 7.88 K/uL (4.8-10.8) 04/06/21 Hgb 14.9 g/dL (14.0-18.0) 04/06/21 Hct 43.8 % (42-52) 04/06/21 Plt Count 246 K/uL (130-400) 04/06/21 Neutrophils (%) (Auto) 52.3 % 04/06/21 Lymphocytes (%) (Auto) 34.1 % 04/06/21 Monocytes # (Auto) 0.74 K/uL (0.11-0.59) H 04/06/21 Eosinophils # (Auto) 0.25 K/uL (0-0.5) 04/06/21 Immature Granulocyte % (Auto) 0.6 % 04/06/21 Neutrophils # (Auto) 4.12 K/uL (1.4-6.5) 04/06/21 Lymphocytes # (Auto) 2.69 K/uL (1.2-3.4) 04/06/21 Monocytes # (Auto) 0.74 K/uL (0.11-0.59) H 04/06/21 Eosinophils # (Auto) 0.25 K/uL (0-0.5) 04/06/21 Basophils # (Auto) 0.03 K/uL (0-0.2) 04/06/21 Immature Granulocyte # (Auto) 0.05 K/uL (0.00-0.02) H 04/06/21 Na 138 mmol/L (136-145) 04/06/21 K 4.2 mmol/L (3.5-5.1) 04/06/21 Cl 105 mmol/L (98-107) 04/06/21 CO2 26 mmol/L (21-32) 04/06/21 Anion Gap 7.0 (3-11) 04/06/21 BUN 14 mg/dl (7-18) 04/06/21 Creatinine 0.78 mg/dl (0.6-1.4) 04/06/21 BUN/Creatinine Ratio 17.5 (10-20) 04/06/21 Glucose Level 133 mg/dl (70-99) H 04/06/21 Ca 9.2 mg/dl (8.5-10.1) 04/06/21 Total Bilirubin 1.0 mg/dl (0.2-1) 04/06/21 AST/SGOT 32 U/L (15-37) 04/06/21 ALT/SGPT 52 U/L (12-78) 04/06/21 Alkaline Phosphatase 61 U/L (45-117) 04/06/21 Total Protein 6.8 gm/dl (6.4-8.2) 04/06/21 Albumin 3.3 gm/dl (3.4-5.0) L 04/06/21 Globulin 3.5 gm/dl (2.5-4.0) 04/06/21 Albumin/Globulin Ratio 1.0 (0.9-2) 04/06/21 Troponin I < 0.015 ng/ml (0-0.045) 04/05/21 MD-Udc-E-Type Natriuretic Pep 58 pg/ml (0-900) 04/05/21 D-Dimer 1170 ug/L FEU (0-500) H* 04/05/21 PTT 54.4 Seconds (21.0-31.0) H* 04/07/21 INR 1.0 (0.9-1.1) 04/05/21 COVID-19 PCR NEGATIVE (Negative) 04/05/21 Chest X-Ray 04/05/21 Code Status & VTE Plan Code Status Full Code VTE Prophylaxis Plan VTE Prophylaxis will be ordered: No Supervising Physician Co-Signing Physician Notes Pt was seen and examined. Agreed with Kendra ARNOLD exam, assessment and plan. 65-year-old male who has significant past medical history of T2DM, HLD, history of Covid, asthma, DWAYNE on CPAP who presents to ED secondary to heart palpitations, tachycardia and lightheadedness prior to arrival. Pt said that today around noon he felt his heart racing, palpitations, diaphoretic and lightheaded. checked his pulse and he was greater than 200. Pt said that he had similar symptoms back in May 2020 where he underwent heart rhythm monitoring. No arrhythmias were captured and echocardiogram was unremarkable. He was cleared from a cardiology standpoint. He said that about 4 days ago that he developed left sided chest wall discomfort that worst with inspiration and occasionally made him feel short of breath. in the ED, CTA chest done showed multiple nonocclusive thrombi within branches of pulmonary artery. Acute occlusive thrombus within left upper lobe pulmonary artery branch with possible area of pulmonary infarction. No evidence of right heart strain. He was starting on IV heparin with bolus, will continue. Will get an echo in am. Will discuss CTA chest finding with pulmonology. Will discuss Warfarin and the DOACs in detail. Will monitor closely in PCU. MD Nanette (1) Pulmonary embolism Pulmonary embolism type: multiple subsegmental (without acute cor pulmonale) Qualified Code(s): I26.94 - Multiple subsegmental pulmonary emboli without acute cor pulmonale
[2021-04-05] MEDS ORDERED: MAGNESIUM HYDROXIDE SUSP 30 ML UDC PO PRN (20:46)
[2021-04-05] MEDS ORDERED: ALUMINUM/MAGNESIUM SUSP 30 ML UDC PO PRN (20:46)
[2021-04-05] MEDS ORDERED: GLUCOSE 40% GEL 15 GM TUBE PO PRN (20:46)
[2021-04-05] MEDS ORDERED: Heparin IV Adult Wt-Based Standard *NO* Bolus Protocol ONE (20:46)
[2021-04-05] MEDS ORDERED: GLUCAGON FOR INJ 1 MG VIAL SQ PRN (20:46)
[2021-04-05] MEDS ORDERED: oxyCODONE HCL IR 5 MG TAB (IMMEDIATE RELEASE) PO PRN (20:46)
[2021-04-05] MEDS ORDERED: DEXTROSE 50% 50 ML SYRINGE IV PRN (20:46)
[2021-04-05] MEDS ORDERED: HEPARIN SODIUM/DEXTROSE 25,000 UNITS/500 ML BAG IV SCH (20:46)
[2021-04-05] MEDS ORDERED: CARBOHYDRATES FOR HYPOGLYCEMIA PO PRN (20:46)
[2021-04-05] MEDS ORDERED: ONDANSETRON INJ 2 MG/ML 2 ML VIAL IV PRN (20:46)
[2021-04-05] MEDS ORDERED: POLYETHYLENE (MIRALAX) 17 GM PACK PO PRN (20:46)
[2021-04-05] MEDS ORDERED: FLUTICASONE PROPIONATE NA SPR 16 GM BTL NAE PRN (20:46)
[2021-04-05] MEDS ORDERED: GLUCOSE 10 TABS/TUBE PO PRN (20:46)
[2021-04-05] MEDS ORDERED: ALBUTEROL HFA 8 GM INHALER INH PRN (20:46)
[2021-04-05] MEDS ORDERED: CYCLOBENZAPRINE HCL 10 MG TAB PO PRN (20:52)
[2021-04-05] MEDS: ATORVASTATIN 20 MG TAB PO SCH (21:38)
[2021-04-05] MEDS: INSULIN GLARGINE SOLOSTAR 100 UNITS/ML 3 ML PEN SC SCH (21:40)
[2021-04-05] MEDS: INSULIN ASPART 100 UNITS/ML 3 ML PEN SC SCH (21:41)
[2021-04-06 00:10] LABS: Partial Thromboplastin Ratio 2.6
[2021-04-06 06:51] LABS: Basophils # (auto) 0.03 K/uL (0-0.2); Basophils % (auto) 0.4 %; Eosinophils # (auto) 0.25 K/uL (0-0.5); Eosinophils % (auto) 3.2 %; Hematocrit (blood only) 43.8 % (42-52); Hemoglobin 14.9 g/dL (14.0-18.0); Immature Granulocytes # (auto) 0.05 K/uL (0.00-0.02); Immature Granulocytes % (auto) 0.6 %; Lymphocytes # (auto) 2.69 K/uL (1.2-3.4); Lymphocytes % (auto) 34.1 %; Mean Corpuscular Hemoglobin 27.4 pg (25-34); Mean Corpuscular Volume 80.5 fL (80-100); Mean Platelet Volume 9.6 fL (7.4-10.4); Monocytes # (auto) 0.74 K/uL (0.11-0.59); Monocytes % (auto) 9.4 %; Neutrophils # (auto) 4.12 K/uL (1.4-6.5); Neutrophils % (auto) 52.3 %; Platelet Count 246 K/uL (130-400); RDW Coefficient of Variation 14.5 % (11.5-14.5); RDW Standard Deviation 42.2 fL (36.4-46.3); Red Blood Count 5.44 M/uL (4.7-6.1); White Blood Count 7.88 K/uL (4.8-10.8)
[2021-04-06 07:10] LABS: Partial Thromboplastin Ratio 2.1
[2021-04-06] MEDS: MULTIVITAMIN TAB PO SCH (07:16)
[2021-04-06 07:22] LABS: Albumin Level 3.3 gm/dl (3.4-5.0); BUN Creatinine Ratio 17.5 (10-20); Calcium 9.2 mg/dl (8.5-10.1); Creatinine Clr Calc Pharmacy 112.7 ml/min; Est GFR (African American) 110.6 ml/min; Est GFR (Non-African American) 95.4 ml/min; Magnesium 2.2 mg/dl (1.8-2.4); Potassium 4.2 mmol/L (3.5-5.1)
[2021-04-06 07:24] LABS: Globulin 3.5 gm/dl (2.5-4.0); Total Protein 6.8 gm/dl (6.4-8.2)
--- NOTE | 2021-04-06 07:55 | Ultrasound Report ---
BILATERAL LOWER EXTREMITY VENOUS DOPPLER HISTORY: Pulmonary embolus. Assess for DVT. COMPARISON STUDY: None. FINDINGS: There are 2 popliteal veins with thrombus seen in one of 2 of the distal right popliteal ve ins. There is also thrombus within the right posterior tibial vein. The remaining right lower extremi ty deep venous structures are patent. No DVT within the left lower extremity. IMPRESSION: 1. Positive DVT within the right lower extremity. 2. No DVT within the left lower extremity. ACT 112: Negative or not required by law. Electronically signed by: Gabriel Sumner M.D. 04/06/2021 7:53 AM
[2021-04-06 08:02] LABS: Partial Thromboplastin Time 55.7 Seconds (21.0-31.0)
[2021-04-06] MEDS: INSULIN ASPART 100 UNITS/ML 3 ML PEN SC SCH ×4 (08:10→20:06)
[2021-04-06] MEDS: INSULIN GLARGINE SOLOSTAR 100 UNITS/ML 3 ML PEN SC SCH ×2 (08:10→20:07)
[2021-04-06] MEDS: HEPARIN SODIUM/DEXTROSE 25,000 UNITS/500 ML BAG IV SCH (11:38)
--- NOTE | 2021-04-06 13:03 | Electrocardiogram Report ---
Test Reason : Blood Pressure : / mmHG Vent. Rate : 108 BPM Atrial Rate : 108 BPM P-R Int : 144 ms QRS Dur : 088 ms QT Int : 334 ms P-R-T Axes : 056 001 028 degrees QTc Int : 447 ms Sinus tachycardia Otherwise normal ECG When compared with ECG of 14-MAY-2020 20:04, No significant change was found Confirmed by Jarred Alonso ([id number]) on 04/06/2021 1:03:01 PM Referred By: REFERRED SELF Confirmed By:Rehan Alonso
--- NOTE | 2021-04-06 13:07 | Electrocardiogram Report ---
Test Reason : Blood Pressure : / mmHG Vent. Rate : 072 BPM Atrial Rate : 072 BPM P-R Int : 164 ms QRS Dur : 092 ms QT Int : 408 ms P-R-T Axes : 031 -05 015 degrees QTc Int : 446 ms Normal sinus rhythm Normal ECG When compared with ECG of 05-APR-2021 14:32, (unconfirmed) Vent. rate has decreased BY 36 BPM Confirmed by Jarred Alonso ([id number]) on 04/06/2021 1:07:20 PM Referred By: REFERRED SELF Confirmed By:Rehan Alonso
[2021-04-06] MEDS: ACETAMINOPHEN 325 MG TAB PO PRN (17:32)
--- NOTE | 2021-04-06 18:57 | Hospitalist Progress Note ---
Date of Service April 06, 2021 Assessment & Plan (1) Pulmonary embolism: (2) DVT (deep venous thrombosis): Present on admission with palpitation and lightheadedness CTA chest showed multiple nonocclusive thrombi within branches of pulmonary artery. Acute occlusive thrombus within left upper lobe pulmonary artery branch with possible area of pulmonary infarction. No evidence of right heart strain or pulmonary artery dilatation seen. Doppler of B/L LE showed positive DVT within the right lower extremity. No DVT within the left lower extremity. Starting on IV Heparin drip Anticoagulant discussed with patient about Warfarin and DOACs Pt would prefer the DOAC over Coumadin Major side effect about anticoagulant discussed with patient such as abnormal bleeding (hematuria and blood in stool) I called the pharmacy to check the schaeffer for Eliquis, it will be about $100/monthly Pt would like us to check for the Xarelto Discussed with pulmonology about pulmonary infarct seen on CTA chest, recommended to repeat CT chest without contrast in 3 months Continue monitor closely (3) Diabetes mellitus, type 2: A1c 8.0 03/05/2021 Hold Metformin Lantus/NovoLog per protocol Continue monitor BS Leukocytosis Mostly due to PE she No signs or symptoms of infection WBC normalized (4) Chronic back pain: Patient is suffering from a disc herniation and is scheduled to have a procedure with Dr. Tobar on April 18 Given newly diagnosed pulmonary embolism lower back procedure will need to be postponed Continue APAP, Flexeril, oxycodone He was taking ibuprofen at home, will discontinue this secondary to anticoagulation (5) DWYANE (obstructive sleep apnea): CPAP at HS (6) DVT prophylaxis: IV Heparin Dispo: PCU PCP: Stefanie FULL CODE Admission and Anticipated Discharge Date Admission Date: April 05, 2021 Subjective Patient was seen and examined for follow-up of PE Lying in bed with no distress with at bedside Patient said that he is not having any symptoms denies any chest pain denies any shortness of breath Review of Systems Review of Systems: All systems reviewed & are unremarkable except as noted in Subjective Physical Exam Physical Exam: General- No acute distress Head- atraumatic Eyes- PERRL, EOMI, ENT- oropharynx clear Neck- supple, no JVD Lungs- clear to auscultation Heart- regular rhythm; no murmur Abdomen- normal bowel sounds, soft, nontender Extremities- no calf tenderness Neuro- alert, oriented x 3; PERRL, EOMI; no facial palsy; no dysarthria Skin- warm & dry Results & Data Results & Data ([facility]) Vital Signs (Past 12 Hours) Vital Signs Temp Pulse Pulse Resp BP Pulse Ox Pulse Ox 04/06/21 15:18 37.0 C 87 19 105/69 93 04/06/21 11:20 36.9 C 88 18 111/78 92 04/06/21 08:47 75 04/06/21 08:42 92 04/06/21 07:11 36.6 C 79 18 107/71 92 (1) Pulmonary embolism Pulmonary embolism type: multiple subsegmental (without acute cor pulmonale) Qualified Code(s): I26.94 - Multiple subsegmental pulmonary emboli without acute cor pulmonale
[2021-04-06] MEDS: ATORVASTATIN 20 MG TAB PO SCH (20:03)
[2021-04-07] MEDS: HEPARIN SODIUM/DEXTROSE 25,000 UNITS/500 ML BAG IV SCH (03:35)
[2021-04-07 06:07] LABS: Partial Thromboplastin Ratio 2.1
[2021-04-07 06:11] LABS: Partial Thromboplastin Time 54.4 Seconds (21.0-31.0)
[2021-04-07] MEDS: ACETAMINOPHEN 325 MG TAB PO PRN (08:07)
[2021-04-07] MEDS: MULTIVITAMIN TAB PO SCH (08:08)
[2021-04-07] MEDS: INSULIN ASPART 100 UNITS/ML 3 ML PEN SC SCH ×2 (08:09→12:03)
[2021-04-07] MEDS: INSULIN GLARGINE SOLOSTAR 100 UNITS/ML 3 ML PEN SC SCH (08:10)
--- NOTE | 2021-04-07 12:38 | Hospitalist Progress Note ---
Date of Service April 07, 2021 Assessment & Plan (1) Pulmonary embolism: Present on admission with palpitation and lightheadedness (2) DVT (deep venous thrombosis): Present on admission with palpitation and lightheadedness CTA chest showed multiple nonocclusive thrombi within branches of pulmonary artery. Acute occlusive thrombus within left upper lobe pulmonary artery branch with possible area of pulmonary infarction. No evidence of right heart strain or pulmonary artery dilatation seen. Doppler of B/L LE showed positive DVT within the right lower extremity. No DVT within the left lower extremity. Starting on IV Heparin drip Anticoagulant discussed with patient about Warfarin and DOACs Pt would prefer the DOAC over Coumadin Major side effect about anticoagulant discussed with patient such as abnormal bleeding (hematuria and blood in stool) I called the pharmacy to check the schaeffer for Eliquis, it will be about $100/monthly Pt would like us to check for the Xarelto. I called the pharmacy and all the DOACs will be around $100 dollars Discussed with pulmonology about pulmonary infarct seen on CTA chest, recommended to repeat CT chest without contrast in 3 months Continue monitor closely (3) Diabetes mellitus, type 2: A1c 8.0 03/05/2021 Hold Metformin Lantus/NovoLog per protocol O to resume Metformin in am Continue monitor BS Leukocytosis Mostly due to PE she No signs or symptoms of infection WBC normalized (4) Chronic back pain: Patient is suffering from a disc herniation and is scheduled to have a procedure with Dr. Tobar on April 18 Given newly diagnosed pulmonary embolism lower back procedure will need to be postponed Continue APAP, Flexeril, oxycodone He was taking ibuprofen at home, will discontinue this secondary to anticoagulation (5) DWAYNE (obstructive sleep apnea): CPAP at HS (6) DVT prophylaxis: IV Heparin/ will transition to eliquis Dispo: PCU PCP: Stefanie FULL CODE Admission and Anticipated Discharge Date Admission Date: April 05, 2021 Subjective Patient was seen and examined for follow-up of PE Sitting at the edge of the bed eating lunch Pt said that he feels fine I called the pharmacy to check for the anticoagulant schaeffer, all the DOACs will be around $100 dollars Pt said that he will be able to afford it denies any chest pain denies any shortness of breath Review of Systems Review of Systems: All systems reviewed & are unremarkable except as noted in Subjective Physical Exam Physical Exam: General- No acute distress Head- atraumatic Eyes- PERRL, EOMI, ENT- oropharynx clear Neck- supple, no JVD Lungs- clear to auscultation Heart- regular rhythm; no murmur Abdomen- normal bowel sounds, soft, nontender Extremities- no calf tenderness Neuro- alert, oriented x 3; PERRL, EOMI; no facial palsy; no dysarthria Skin- warm & dry Results & Data Results & Data ([facility]) Vital Signs (Past 12 Hours) Vital Signs Temp Pulse Pulse Resp BP Pulse Ox 04/07/21 11:16 36.5 C 87 18 109/69 94 04/07/21 08:37 67 04/07/21 07:03 36.7 C 75 18 107/72 91 04/07/21 03:38 36.6 C 79 20 106/73 91 (1) Pulmonary embolism Pulmonary embolism type: multiple subsegmental (without acute cor pulmonale) Qualified Code(s): I26.94 - Multiple subsegmental pulmonary emboli without acute cor pulmonale
[2021-04-07] MEDS ORDERED: APIXABAN 5 MG TABLET PO SCH (12:45)
--- NOTE | 2021-04-07 14:44 | Electrocardiogram Report ---
Test Reason : Blood Pressure : / mmHG Vent. Rate : 074 BPM Atrial Rate : 074 BPM P-R Int : 154 ms QRS Dur : 090 ms QT Int : 406 ms P-R-T Axes : 030 -05 006 degrees QTc Int : 450 ms Normal sinus rhythm Normal ECG When compared with ECG of 06-APR-2021 05:40, No significant change was found Confirmed by Felipe Parr ([id number]) on 04/07/2021 2:44:05 PM Referred By: REFERRED SELF Confirmed By:Felipe Parr
--- NOTE | 2021-04-16 00:25 | Discharge Summary ---
Date of Service April 07, 2021 Admission HPI Per Admitting Provider This is a 65-year-old male who has significant past medical history of T2DM, HLD, history of Covid, asthma, DWAYNE on CPAP who presents to ED secondary to heart palpitations, tachycardia and lightheadedness prior to arrival. Symptoms started abruptly at approximately 12:15 PM. He could feel his heart racing, palpitations, diaphoretic and lightheaded. had a pulse ox and checked his pulse and it was reading greater than 200. He tried to get up to walk to the sink but when he tried to walk he became lightheaded and opted to sit back down. His symptoms continued until he got into triage and slowly started to resolve. In triage Per ED provider heart rate was registering over 200. However, by the time patient was hooked up to monitor his heart rate was in the 140s and then into the 110s. Patient had a similar event back in May 2020 when he had similar symptoms and tachycardia. When he presented to ED his symptoms had resolved. He had followed up with [facility] cardiology Dr. Coello and underwent heart rhythm monitoring. No arrhythmias were captured and echocardiogram was unremarkable. He was cleared from a cardiology standpoint. Prior to today at 1215 he had been otherwise feeling well. He did elicit that for the past 3 to 4 days he had left chest wall pain that was worse with inspiration and occasionally made him feel short of breath. The pain came on when he woke up one morning and gradually resolved. His left-sided chest pain is resolved and is not currently present. He denies any recent fever, chills, sweats, syncope, shortness of breath, cough, hemoptysis, URI symptoms, nausea, vomiting, abdominal pain, change in bowel or urinary habits. His appetite has otherwise been well. He admits to approximately a 5 pound weight loss since being started on Metformin. He denies any prior past history of blood clots or family history of blood clots. He denies any recent travel. He admits to being more sedentary in the past year secondary to working from home as well as low back and leg pain. Patient has been suffering from herniated lumbar disks and is to undergo surgery with Dr. Tobar on April 18. He had his first preop appointment yesterday. In ED patient remained hemodynamically stable. He is saturating well on room air. Unfortunately chest CTA revealed multiple nonocclusive thrombi within branches of the pulmonary artery. An acute occlusive thrombus within the left upper lobe pulmonary artery branch with possible area of pulmonary infarction. No evidence of right heart strain. He was appropriately started on IV heparin with bolus and his magnesium was repleted. Admission Exam Per Admitting Provider Constitutional: WD/WN, vitals as above, NAD, sitting up in bed, pleasant, conversing easily Head: Normocephalic, Atraumatic Eyes: PERRL, conjunctivae normal, anicteric sclerae ENMT: external ear and nose normal, oropharynx normal Neck: trachea midline, no thyromegaly normal visual inspection Respiratory: normal respiratory effort, lungs clear to auscultation, no wheeze, rales, rhonchi. Normal insp/exp effort, no accessory muscle use Cardiovascular: RRR, no murmur, no edema Vessels: no JVD or carotid bruit Chest: normal inspection of chest Abdomen: normal bowel sounds, soft, nontender, no hepatosplenomegaly Musculoskeletal: no cyanosis or clubbing, extremities motor strength 5/5 Skin: no rashes, warm and dry normal turgor Neurologic: PERRL, EOMI, accommodation nl, no face palsy, no dysarthria CN's II-XI intact bilaterally and moves all extremities Psychiatric: A+Ox3, euthymic affect Lymphatic: no cervical or axillary lymphadenopathy : deferred Principal Diagnosis (1) Pulmonary embolism: (2) DVT (deep venous thrombosis): (3) Diabetes mellitus, type 2: (4) Chronic back pain: (5) DWAYNE (obstructive sleep apnea): Discharge Exam General- No acute distress Head- atraumatic Eyes- PERRL, EOMI, ENT- oropharynx clear Neck- supple, no JVD Lungs- clear to auscultation Heart- regular rhythm; no murmur Abdomen- normal bowel sounds, soft, nontender Extremities- no calf tenderness Neuro- alert, oriented x 3; PERRL, EOMI; no facial palsy; no dysarthria Skin- warm & dry Discharge Data Allergies Allergy/AdvReac Type Severity Reaction Status Date / Time No Known Allergies Allergy Verified 03/25/21 10:10 Consultations 04/05/21 17:13 ED Decision to Admit Stat Ordered Studies 04/05/21 15:40 CT angio chest PE protocol Stat 04/06/21 US venous doppler LE Urgent BILATERAL LOWER EXTREMITY VENOUS DOPPLER HISTORY: Pulmonary embolus. Assess for DVT. COMPARISON STUDY: None. FINDINGS: There are 2 popliteal veins with thrombus seen in one of 2 of the distal right popliteal veins. There is also thrombus within the right posterior tibial vein. The remaining right lower extremity deep venous structures are patent. No DVT within the left lower extremity. IMPRESSION: 1. Positive DVT within the right lower extremity. 2. No DVT within the left lower extremity. ACT 112: Negative or not required by law. Electronically signed by: Gabriel Sumner M.D. 04/06/2021 7:53 AM Dictated: 04/06/21751Transcribed: 04/06/21751 CT ANGIOGRAM OF THE CHEST CLINICAL HISTORY: PE COMPARISON STUDY: May 06, 2020 TECHNIQUE: Following the IV administration of 119 mL of Optiray, CT angiogram of the thorax was performed from the thoracic inlet to the lung bases utilizing the pulmonary embolus protocol. Images are reviewed in the axial, sagittal, and coronal planes. IV contrast was administered without complication. MIP imaging was performed. A dose lowering technique was utilized adhering to the principles of ALARA. CT DOSE: 754.66 mGy.cm FINDINGS: There is adequate characterization of the main pulmonary artery. Multiple filling defects are seen within branches of the pulmonary artery supplying upper and lower lobes of bilateral lungs which is mostly nonocclusive however there is complete occlusion small branch of pulmonary artery supplying left upper lobe (4/176) Pulmonary artery is normal in caliber. No right heart strain seen. Cardiac silhouette is normal in size. No evidence of pericardial effusion. No significant coronary calcification seen however evaluation is limited due to motion artifact. Visualized portion of thyroid gland shows no evidence of focal lesions. Esophagus is normal. No pathologically enlarged axillary mediastinal or hilar lymph nodes were visualized. Tracheobronchial tree is patent. Focal peripheral triangular opacity is seen within left upper lobe and might represent pulmonary infarct. Minimal atelectasis is seen in bilateral bases. Limited evaluation of upper abdominal viscera shows no evidence of acute abnormalities. Osseous structures: Mild degenerative changes of the spine. IMPRESSION: 1. Multiple nonocclusive thrombi within branches of pulmonary artery. Acute occlusive thrombus within left upper lobe pulmonary artery branch with possible area of pulmonary infarction. No evidence of right heart strain or pulmonary artery dilatation seen. Results were reported to emergency Department at the time of this dictation. 2. No infiltrates or consolidative lesions. ACT 112: Positive. There are findings on this exam that require communication between the performing entity and the patient following Patient Test Result Information Act ([place] Act 112) guidelines. The above report was generated using voice recognition software. It may contain grammatical, syntax or spelling errors. Electronically signed by: Indira Barker DO 04/05/2021 4:29 PM Dictated: 04/05/214Transcribed: 04/05/211613 XR chest 1V portable CLINICAL HISTORY: tachycardia COMPARISON STUDY: May 06, 2020 FINDINGS: No pneumothorax. No pleural effusion. No large infiltrates or consolidative lesions are seen. Minimal atelectasis/scarring is seen at the left base. Cardiomediastinal silhouette is within normal limits in size. No significant pulmonary vascular congestion.. Osseous structures: unremarkable IMPRESSION: 1. Minimal atelectasis/scarring at the left base. ACT 112: Negative or not required by law. The above report was generated using voice recognition software. It may contain grammatical, syntax or spelling errors. Electronically signed by: Indira Barker DO 04/05/2021 3:00 PM Dictated: 04/05/211458Transcribed: 04/05/211458 Hospital Course (1) Pulmonary embolism: Present on admission with palpitation and lightheadedness (2) DVT (deep venous thrombosis): Present on admission with palpitation and lightheadedness CTA chest showed multiple nonocclusive thrombi within branches of pulmonary artery. Acute occlusive thrombus within left upper lobe pulmonary artery branch with possible area of pulmonary infarction. No evidence of right heart strain or pulmonary artery dilatation seen. Doppler of B/L LE showed positive DVT within the right lower extremity. No DVT within the left lower extremity. Starting on IV Heparin drip Anticoagulant discussed with patient about Warfarin and DOACs Pt would prefer the DOAC over Coumadin Major side effect about anticoagulant discussed with patient such as abnormal bleeding (hematuria and blood in stool) I called the pharmacy to check the schaeffer for Eliquis, it will be about $100/monthly Pt would like us to check for the Xarelto. I called the pharmacy and all the DOACs will be around $100 dollars Discussed with pulmonology about pulmonary infarct seen on CTA chest, recommended to repeat CT chest without contrast in 3 months Continue monitor closely (3) Diabetes mellitus, type 2: A1c 8.0 03/05/2021 Hold Metformin Lantus/NovoLog per protocol O to resume Metformin in am Continue monitor BS Leukocytosis Mostly due to PE she No signs or symptoms of infection WBC normalized (4) Chronic back pain: Patient is suffering from a disc herniation and is scheduled to have a procedure with Dr. Tobar on April 18 Given newly diagnosed pulmonary embolism lower back procedure will need to be postponed Continue APAP, Flexeril, oxycodone He was taking ibuprofen at home, will discontinue this secondary to anticoagulation (5) DWAYNE (obstructive sleep apnea): CPAP at HS (6) DVT prophylaxis: IV Heparin/ will transition to eliquis Dispo: PCU PCP: Stefanie FULL CODE Total Time Total Time Spent Total Time Spent (In Minutes): 35 minutes Total Time Includes: Examination of the Patient, Discharge Planning, Medication Reconciliation, Communication With Other Providers and Other Discharge Plan Discharge Items Patient Disposition: Home - Self-Care Reason For Visit: PE Discharge Diagnosis: (1) Pulmonary embolism: (2) DVT (deep venous thrombosis): (3) Diabetes mellitus, type 2: (4) Chronic back pain: (5) DWAYNE (obstructive sleep apnea): Activity: Resume your previous activity Non-emergency contact: Primary Care Provider Call non-emergency contact if: you have any medication questions Follow-up/Referrals: Padmini Watts, [Primary Care Provider] - (Date & Time 04/08/2021 10:40 AM Provider Chaya Huff PA-C Department [facility] ) Diet: Carb Consistent or DM2 Addtl Attending Provider Instructions: Follow up with your primary care provider with 1 week You will need a repeat CAT scan of the chest without contrast in 3 months to evaluate the pulmonary infarction (Your provider will arrange for it) Please notify your orthopedic surgeon about your blood clot before arranging for any procedure Monitor for any abnormal bleeding (blood in urine and stool ) Fall precaution Ok to resume Metformin in the morning Medication Instructions: Eliquis Your condition is typically treated with an anticoagulant. Anticoagulants will thin your blood to help prevent new clots. You should take her medication exactly as directed. Never skip a dose. Never take a double dose. If you miss a dose, take it as soon as you remember. Avoid NSAIDs (Motrin, Aleve, Naproxen, Ibuprofen, Advil, Meloxicam,..) due to risks of bleeding Call your Primary Care doctor if you experience any of the following: Swelling or Pain in your leg Sudden, continuous pain deep in a muscle Pain that worsens when you are active or when you stand still for a long time Chest Pain Sudden Shortness of Breath Rapid or pounding heart beat Fainting Dizziness Cough with blood or bloody sputum Sweating more than normal Bruises Heavy or uncontrolled bleeding Blood in your urine, stool or vomit Black or tarry stools Caring for Your Self at Home: Avoid sitting, standing or lying down for long periods without moving your legs and feet When traveling by car, stop to get out and move around at least once every 3 hours On long airplane, train or bus rides, get up and move around when possible If you can't get up, wiggle your toes and tighten your calves to keep your bl ood moving Follow Up: It is important for you to keep your follow up appointments with your medical provider. Pending Studies at Discharge: No Stand-Alone Forms: [facility], Smoking Cessation Medications and DC Order Prescriptions: New Eliquis 5 mg tablet 5 mg PO BID Qty: 74 RF: 0 Continued multivitamin Tablet 1 tab PO QAM RF: 0 cyclobenzaprine 10 mg Tablet 10 mg PO BID PRN (Reason: Muscle Spasm) RF: 0 metformin 500 mg Tablet 1,000 mg PO QPM RF: 0 atorvastatin 20 mg Tablet 20 mg PO HS RF: 0 albuterol sulfate 90 mcg/actuation Hfa Aerosol Inhaler 2 puff INHALATION Q6H PRN (Reason: Wheezing) RF: 0 fluticasone propionate 50 mcg/actuation [place],Suspension 2 spray INTRANASAL DAILY PRN (Reason: Nasal Congestion) RF: 0 acetaminophen 500 mg Capsule 1,000 mg PO Q8H PRN (Reason: Pain) RF: 0 oxycodone 5 mg Tablet 5 mg PO TID PRN (Reason: Pain) RF: 0 Discontinued ibuprofen 200 mg Tablet 800 mg PO Q6H PRN (Reason: Pain) RF: 0 Discharge Orders: Discharge Order (Routine); Ordered 04/07/21 Ordered By: Mag Fitzpatrick Admission Data Admit Date/Time: 04/05/21 17:26 Attending Provider: Mag Fitzpatrick Admit Provider: Mag Fitzpatrick Primary Care Provider: Padmini Watts Other Providers: Mag Fitzpatrick Other Interventions: Discharge Summary Assessment (RN) Last Done: 04/07/21 14:09
== END 2021-04-07 14:43 | disposition home or self-care (01) | DRG 176 ==
LOC: ED 14:04 → 2S 17:26